=== PATIENT | male | born 1950 | race Caucasian/White ===

== ENCOUNTER 2020-07-30 12:43 | Observation (INO) ==
[2020-07-30] MEDS ORDERED: Aspirin Enteric Coated 325 MG Tablet PO STA (15:07)
[2020-07-30] MEDS ORDERED: Perflutren Lipid Microsphere 1.3 ML in 0.9 % Sodium Chloride 8.7 ML IVP PRN (15:12)
[2020-07-30] MEDS ORDERED: Naloxone 0.4 MG/ML INJ IVP PRN (16:23)
[2020-07-30] MEDS ORDERED: *HR* Heparin 5,000 UNIT/ML VIAL IVP PRN ×2 (17:59)
[2020-07-30] MEDS ORDERED: Nitroglycerin 0.4 MG TAB.SUBL SL PRN (18:06)
[2020-07-30] MEDS ORDERED: *HR* LORazepam 2 MG/ML VIAL IVP PRN ×3 (18:07)
[2020-07-30] MEDS: Heparin 25,000UNIT/250ML 1/2NS 25,000 UNIT/250 ML IV.SOLN IVC SCH (18:43)
[2020-07-30] MEDS ORDERED: *HR* Metoprolol 5 MG/5 ML VIAL IVP ONE (18:46)
[2020-07-30] MEDS ORDERED: Acetaminophen 325 MG TABLET PO ONE (19:38)
[2020-07-30] MEDS ORDERED: Acetaminophen IV 1,000 MG/100 ML BAG IVPB ONE (23:32)
[2020-07-31] MEDS: Artificial Tears SOLN 15 ML BOTTLE BOTH EYES SCH ×5 (00:14→22:01)
[2020-07-31 07:14] LABS: INR 1.1; Prothrombin Time 13.2 Seconds (9.4-12.1)
[2020-07-31 07:18] LABS: Hematocrit 42.5 % (37.5-50.1); Hemoglobin 14.3 g/dL (12.9-16.9); Mean Corpuscular HGB Conc 33.6 g/dL (31.6-35.5); Mean Corpuscular Volume 92.2 fL (83.0-100.0); Mean Platelet Volume 11.2 fL (9.4-12.4); Platelet Count 154 K/mcL (140-400); Red Blood Count 4.61 M/mcL (4.19-5.50); Red Cell Distribution Width 14.5 % (11.5-14.5); White Blood Count 8.3 K/mcL (4.3-11.1)
[2020-07-31 07:22] LABS: BUN/Creatinine Ratio 13 (6-26); Blood Urea Nitrogen 15 mg/dL (8-23); Calcium 9.4 mg/dL (8.6-10.3); Carbon Dioxide 24 mEq/L (23-29); Chloride 107 mEq/L (98-107); Glucose 116 mg/dL (70-105); Magnesium 1.8 mg/dL (1.6-2.6); Osmolality,Calculated 292 (280-300); Potassium 3.8 mEq/L (3.5-5.1); Sodium 140 mEq/L (136-145); eGFR For African Americans > 60 (> 60); eGFR For Non-African Americans 60 (> 60)
[2020-07-31 07:23] LABS: Chol/HDL Ratio 2.7 (0-4.9)
[2020-07-31 07:25] LABS: Estimated Average Glucose 131 mg/dl; Hemoglobin A1C 6.2 %
[2020-07-31] MEDS: Vitamin B Complex/Vit C/Vit E 1 EACH TABLET PO SCH (09:34)
[2020-07-31] MEDS: Aspirin Enteric Coated 81 MG Tablet PO SCH (09:34)
[2020-07-31] MEDS: Thiamine (B-1) 100 MG TABLET PO SCH (09:34)
[2020-07-31] MEDS: Folic Acid 1 MG TABLET PO SCH (09:34)
[2020-07-31] MEDS: lisinopriL 5 MG TABLET PO SCH (09:34)
[2020-07-31] MEDS: Acetaminophen 325 MG TABLET PO PRN ×2 (10:29→22:00)
[2020-07-31] MEDS: cloNIDine HCL 0.1 MG TABLET PO SCH (21:54)
[2020-07-31] MEDS: Heparin 25,000UNIT/250ML 1/2NS 25,000 UNIT/250 ML IV.SOLN IVC SCH (22:05)
[2020-08-01 03:07] LABS: Hematocrit 38.7 % (37.5-50.1); Hemoglobin 13.1 g/dL (12.9-16.9); Mean Corpuscular HGB Conc 33.9 g/dL (31.6-35.5); Mean Corpuscular Hemoglobin 31.3 pg (28.0-33.3); Mean Corpuscular Volume 92.6 fL (83.0-100.0); Platelet Count 143 K/mcL (140-400); Red Blood Count 4.18 M/mcL (4.19-5.50); Red Cell Distribution Width 14.3 % (11.5-14.5); White Blood Count 8.1 K/mcL (4.3-11.1)
[2020-08-01 03:27] LABS: BUN/Creatinine Ratio 15 (6-26); Blood Urea Nitrogen 15 mg/dL (8-23); Calcium 8.8 mg/dL (8.6-10.3); Carbon Dioxide 22 mEq/L (23-29); Chloride 105 mEq/L (98-107); Glucose 107 mg/dL (70-105); Osmolality,Calculated 283 (280-300); Potassium 3.5 mEq/L (3.5-5.1); Sodium 136 mEq/L (136-145); eGFR For African Americans > 60 (> 60); eGFR For Non-African Americans > 60 (> 60)
[2020-08-01] MEDS: Folic Acid 1 MG TABLET PO SCH (08:41)
[2020-08-01] MEDS: Vitamin B Complex/Vit C/Vit E 1 EACH TABLET PO SCH (08:41)
[2020-08-01] MEDS: cloNIDine HCL 0.1 MG TABLET PO SCH ×2 (08:41→20:32)
[2020-08-01] MEDS: lisinopriL 5 MG TABLET PO SCH (08:41)
[2020-08-01] MEDS: Multivit/Ca/Min/Fe/FA 1 TAB TABLET PO SCH (08:41)
[2020-08-01] MEDS: Aspirin Enteric Coated 81 MG Tablet PO SCH (08:42)
[2020-08-01] MEDS: Thiamine (B-1) 100 MG TABLET PO SCH (08:42)
[2020-08-01] MEDS: Artificial Tears SOLN 15 ML BOTTLE BOTH EYES SCH ×4 (08:42→20:40)
[2020-08-01] MEDS: Acetaminophen 325 MG TABLET PO PRN (08:44)
[2020-08-01] MEDS ORDERED: Isovue-370 500 ML BOTTLE IVP ONE (09:50)
[2020-08-01 11:19] LABS: Bilirubin,Urine Negative (Negative); Blood,Urine Negative (Negative); Clarity,Urine Clear (Clear); Color,Urine Yellow (Yellow); Glucose,Urine (UA) Normal (Normal); Ketones,Urine 20 mg/dL (Negative); Leukocyte Esterase,Urine Negative (Negative); Mucus,Urine Few per lpf (None-Few); Nitrite,Urine Negative (Negative); Protein,Urine 30 mg/dL (Neg-Trace); Specific Gravity,Urine > 1.030 (1.010-1.025); Squamous Epithelial Cell,Urine Few per hpf (None-Few); WBC,Urine 0-3 per hpf (0-3)
[2020-08-01] MEDS ORDERED: GI Cocktail 40 ML EACH PO ONE ×2 (12:17→20:09)
[2020-08-02] MEDS: Heparin 25,000UNIT/250ML 1/2NS 25,000 UNIT/250 ML IV.SOLN IVC SCH (04:50)
[2020-08-02 05:32] LABS: Basophils % 0.3 %; Eosinophils # 0.1 K/mcL (0.0-0.6); Eosinophils % 1.4 %; Hematocrit 36.7 % (37.5-50.1); Hemoglobin 12.4 g/dL (12.9-16.9); Immature Granulocytes % 0.3 % (0-4); Immature Platelets 4.6 % (1.1-6.1); Lymphocytes # 1.6 K/mcL (0.6-4.6); Lymphocytes % 24.8 %; Mean Corpuscular HGB Conc 33.8 g/dL (31.6-35.5); Mean Corpuscular Volume 91.8 fL (83.0-100.0); Mean Platelet Volume 10.6 fL (9.4-12.4); Monocytes # 0.9 K/mcL (0.0-1.3); Neutrophils # 3.9 K/mcL (1.6-8.9); Platelet Count 127 K/mcL (140-400); Red Cell Distribution Width 14.2 % (11.5-14.5); Segmented Neutrophils % 60.2 %; White Blood Count 6.5 K/mcL (4.3-11.1)
[2020-08-02 05:42] LABS: BUN/Creatinine Ratio 14 (6-26); Blood Urea Nitrogen 14 mg/dL (8-23); Calcium 8.6 mg/dL (8.6-10.3); Carbon Dioxide 23 mEq/L (23-29); Chloride 105 mEq/L (98-107); Glucose 111 mg/dL (70-105); Osmolality,Calculated 285 (280-300); Potassium 3.8 mEq/L (3.5-5.1); Sodium 137 mEq/L (136-145); eGFR For African Americans > 60 (> 60); eGFR For Non-African Americans > 60 (> 60)
[2020-08-02] MEDS: lisinopriL 5 MG TABLET PO SCH (09:29)
[2020-08-02] MEDS: Vitamin B Complex/Vit C/Vit E 1 EACH TABLET PO SCH (09:30)
[2020-08-02] MEDS: Folic Acid 1 MG TABLET PO SCH (09:30)
[2020-08-02] MEDS: cloNIDine HCL 0.1 MG TABLET PO SCH (09:31)
[2020-08-02] MEDS: Multivit/Ca/Min/Fe/FA 1 TAB TABLET PO SCH (09:31)
[2020-08-02] MEDS: Aspirin Enteric Coated 81 MG Tablet PO SCH (09:32)
[2020-08-02] MEDS: Thiamine (B-1) 100 MG TABLET PO SCH (09:34)
[2020-08-02] MEDS: Artificial Tears SOLN 15 ML BOTTLE BOTH EYES SCH (09:40)
[2020-08-02 10:44] VITALS: BP 101/69
== END 2020-08-02 13:29 | disposition home or self-care (01) ==
LOC: 3BNU → SUATTDRO 14:33
PROVIDERS: ADMIT Internal Medicine; ATTEND Family Medicine